=== PATIENT | female | born 1970 | race Caucasian/White ===

== ENCOUNTER 2021-01-18 18:10 | Emergency (ER) | payer MEDICARE, MEDICAID, SELFPAY ==
[2021-01-18 18:14] VITALS: BP 140/85; PULSE 91; RESP 18; TEMP 36.6; O2SAT 97; BMI 38.5
--- NOTE | 2021-01-18 21:28 | ED.GENADULT ---
HPI - General Adult General Chief complaint: General Medical Stated complaint: rectal pain Time Seen by Provider: 01/18/21 18:51 Source: patient Mode of arrival: ambulatory Limitations: no limitations History of Present Illness HPI narrative: Patient been constipated for last few days today patient try to move bowel and felt something stuck in her rectum complaining of bowel like feeling in her rectum. No abdominal pain no nausea no vomiting Related Data Previous Rx's Medication Instructions Recorded polyethylene glycol 3350 [Miralax] 17 g PO DAILY #510 g 01/18/21 Allergies Allergy/AdvReac Type Severity Reaction Status Date / Time bupropion [From WELLBUTRIN] Allergy Mild UNKNOWN Verified 01/18/21 18:14 Sulfa (Sulfonamide Allergy Mild RASH Verified 01/18/21 18:14 Antibiotics) [SULFA (SULFONAMIDE ANTIBIOTICS)] sulfamethoxazole Allergy Mild RASH Verified 01/18/21 18:14 [From BACTRIM] trimethoprim [From BACTRIM] Allergy Mild RASH Verified 01/18/21 18:14 bactrim Allergy Unknown Unknown Uncoded 01/18/21 18:14 Review of Systems Review of Systems: Yes all other systems are reviewed and are negative [facility] Past Medical History Medical History AAA (abdominal aortic aneurysm) Osteoarthritis Uterine abscess Surgical History History of hysterectomy History of reversal of ileostomy S/P cholecystectomy S/P hernia repair Social History Social History Advance Directives: No Advance Directives Information Provided: Yes Patient : No Physical Exam Vital Signs: Vital Signs: Last Vital Signs Temp 98.0 F 01/18/21 23:28 Pulse 85 01/18/21 23:28 Resp 16 01/18/21 23:28 BP 105/40 L 01/18/21 23:28 Pulse Ox 99 01/18/21 23:28 Body Mass Index 38.5 Appearance: Alert. Oriented X3. No acute distress. Eyes: PERRLA, No Nystagmus ENT: Pharynx normal. Oral Mucosa moist Neck: Normal inspection. Neck supple. CVS: Normal heart rate and rhythm. Pulses normal. Respiratory: No respiratory distress. Equal air entry bilateral, Abdomen: Soft and nontender. Bowel sounds are present, no mass palpable, no CVA tenderness Rectal: Hard stool in the rectum Skin: Skin warm and dry. Normal skin color. Normal skin turgor. Extremities: No lower extremity edema. No calf tenderness Neuro: Oriented X 3. No motor deficit. Medical Decision Making MDM Narrative Medical decision making narrative: Patient's constipation with stool impaction in the rectum manual disimpaction done in the ER patient had a good bowel movement after that and start feeling much better Discharge Plan Discharge Clinical Impression: Constipation Qualifiers: Constipation type: chronic idiopathic constipation Qualified Code(s): K59.04 - Chronic idiopathic constipation Patient Disposition: Home, Self-Care Instructions: Constipation (ED) Additional Instructions: Drink plenty of fluids take stool softener daily Prescriptions: New polyethylene glycol 3350 [Miralax] 17 gram/dose powder 17 g PO DAILY Qty: 510 RF: 0 Interventions: ED Discharge Assessment Last Done: 01/19/21 00:05 Discharge Date/Time: 01/19/21 00:06
[2021-01-18] MEDS: Lidocaine HCl 2 % Urojet 10 ML JEL.PF.APP TOPICAL (22:06)
--- NOTE | 2021-01-18 22:06 | PC.NURSE ---
PT TRIED TO MOVE BOWELS FOLLOWING EXAM BY , UNSUCCESSFUL. PT RECEIVED RECTAL LIDOCAINE, MD USED GLOVED FINGER TO BREAK UP SOFT STOOL AT EDGE OF COLON. LIQUID STOOL NOW RUNNING OUT. PT WANTS A FEW MINUTES BEFORE MAKING ANOTHER ATTEMPT.
[2021-01-18 23:28] VITALS: BP 105/40; PULSE 85; RESP 16; TEMP 36.7; O2SAT 99
== END 2021-01-19 00:06 | disposition home or self-care (01) ==
PROVIDERS: Emergency Provider Internal Medicine; PCP Pediatrics
DX: K59.04 Chronic idiopathic constipation (principal); K62.89 Other specified diseases of anus and rectum; Z79.899 Other long term (current) drug therapy
CPT/HCPCS: 99283

== ENCOUNTER 2021-11-16 17:50 | Outpatient (REF) | payer OTHER, SELFPAY ==
--- NOTE | ~2021-11-16 | MR_ITS ---
MR BRAIN WITHOUT CONTRAST MR CERVICAL SPINE WITHOUT CONTRAST CLINICAL INFORMATION: Demyelinating disease. COMPARISON: Head CT 10/31/2016. TECHNIQUE: MRI of the cervical spine was obtained using routine sequences without contrast. FINDINGS: BRAIN MRI: There is no hydrocephalus, extra-axial surface collection, or herniation. There is a small nonspecific focus of T2 signal change within the subcortical white matter of the posterior right parasagittal parietal lobe and there are mild T2 signal changes within the minor. The major flow voids at the skull base are preserved. There is no acute infarct on diffusion-weighted imaging. There is no intracranial hemorrhage on the gradient recalled echo acquisition. The midline structures are normal. The cerebellar tonsils are normally positioned. The craniocervical junction is normal. Osseous marrow signal intensity is homogenous. The visualized soft tissues are unremarkable. CERVICAL SPINE MRI: Cervical alignment is maintained. There is a partially imaged leftward convex scoliotic curvature of the thoracic spine. Moderate disc volume loss at C6-C7. The remaining cervical disc volumes are preserved. There is no bone marrow edema. There are no acute fractures. Craniocervical junction is unremarkable. Cervical arterial flow voids are maintained. No cord signal changes accounting for artifact. No significant extraspinal soft tissue findings. Left foraminal perineural cyst at T1-T2 C2-C3: Shallow left paracentral disc protrusion mildly narrows the central canal appear Uncovertebral joint hypertrophy and hypertrophic facet arthropathy result in left-sided foraminal encroachment. C3-C4: Slight annular disc bulge. Left-sided hypertrophic facet arthropathy and uncovertebral joint spurring result in mild left-sided foraminal encroachment. No central canal and no right foraminal stenosis. C4-C5: Slight annular disc bulge. Uncovertebral joint spurring and facet arthropathy result in moderate left-sided foraminal stenosis. No central canal and no right foraminal stenosis. C5-C6: Annular disc bulge. Uncovertebral joint hypertrophy and hypertrophic facet arthropathy result in mild bilateral foraminal encroachment. C6-C7: Left paracentral disc osteophyte protrusion slightly flattens the ventral cord resulting in mild narrowing of the central canal. Advanced uncovertebral joint hypertrophy and hypertrophic facet arthropathy result in severe left-sided foraminal stenosis. C7-T1: Disc contour is normal. No central canal stenosis. Facet arthropathy results in mild left-sided foraminal encroachment. MR/MR cervical spine wo con IMPRESSION: - There is a small nonspecific focus of T2 signal change within the subcortical white matter of the posterior right parasagittal parietal lobe and there are mild T2 signal changes within the minor. - No definite cervical cord signal changes accounting for artifact. - Multilevel cervical spondylosis, greatest at C6-C7 where a left paracentral disc osteophyte protrusion slightly flattens the ventral cord resulting in mild narrowing of the central canal and advanced spondylitic changes result in severe left-sided foraminal stenosis there is also moderate left-sided foraminal stenosis at C4-C5. Additional spondylitic changes as discussed in detail above.
== END 2021-11-16 17:51 | disposition home or self-care (01) ==
LOC: HO.MRI 17:50
PROVIDERS: Visit Provider Psychiatry & Neurology Neurology
DX: G37.9 Demyelinating disease of central nervous system, unspecified (principal)
CPT/HCPCS: 70551; 72141